=== PATIENT | female | born 1945 | race Caucasian/White ===

== ENCOUNTER 2024-10-08 10:24 | Observation (INO) ==
[2024-10-08 11:29] LABS: ABS Eosinophils 0.1 10^3/uL (0.0-0.5); ABS Monocytes 0.3 10^3/uL (0.0-0.9); ABS Neutrophils 5.2 10^3/uL (1.5-7.6); Hematocrit 25.9 % (35-45); Hemoglobin 8.9 g/dL (11.5-14.3); Lymphocyte % 14.4 %; Mean Corpuscular Hemoglobin 31.5 pg (27-33); Mean Corpuscular Hgb Conc 34.3 g/dL (31-36); Mean Corpuscular Volume 91.7 fL (80-97); Mean Platelet Volume 7.5 fL (7.5-11.2); Platelet Count 314 10^3/uL (150-450); Red Blood Count 2.82 10^6/uL (3.63-4.92); Red Cell Distribution Width 13.2 % (12-17); White Blood Count 6.6 10^3/uL (3.8-11.8)
[2024-10-08 11:52] LABS: High Sens Troponin Baseline 4 pg/mL (<15)
[2024-10-08 12:01] LABS: ALT 9 U/L (7-52); AST 13 U/L (13-39); Albumin 4.1 g/dL (3.5-5.7); Albumin/Globulin Ratio 2.1 (1-3); Alkaline Phosphatase 47 U/L (35-149); Anion Gap 3 mmol/L (2-16); Blood Urea Nitrogen 22 mg/dL (6-24); CO2 Carbon Dioxide 30 mmol/L (22-32); Chloride 107 mmol/L (101-111); Creatinine, Serum 0.61 mg/dL (0.51-0.95); Glucose 129 mg/dL (70-100); Potassium 3.7 mmol/L (3.5-5.0); Sodium 140 mmol/L (135-145); Total Bilirubin 0.4 mg/dL (0.2-1.0); Total Protein 6.1 g/dL (6.4-8.9); eGFR CKD-EPI 91.5 (>60)
[2024-10-08 13:10] LABS: High Sensitivity Troponin 1 Hr 4 pg/mL (<15)
[2024-10-08] MEDS: Lactated Ringers 1000 ml BAG 1,000 ML IV ONE (14:21)
[2024-10-08 14:30] LABS: Hemoglobin 8.3 g/dL (11.5-14.3)
[2024-10-08] MEDS ORDERED: Sulfur Hexaflouride MICROSPHR 25 MG VIAL IV PRN (14:47)
[2024-10-08 15:07] LABS: % Iron Saturation 6 % (15-55); .Transferrin 249 mg/dL (203-362); Iron < 20 ug/dL (50-212); Total Iron Binding Capacity 349 mcg/dL (250-450); Unsaturated Iron Binding 329 ug/dL
[2024-10-08 15:27] LABS: Ferritin 6.9 ng/mL (11-307)
[2024-10-08] MEDS: Lactated Ringers 1000 ml BAG 1,000 ML IV SCH (15:34)
[2024-10-08] MEDS: Ferric Gluconate IV 250 MG in NS 0.9% 250 ml 200 ML IVPB SCH (18:01)
[2024-10-08] MEDS: Enoxaparin 40 MG/0.4 ML SYR SUBCUT SCH (18:02)
[2024-10-08] MEDS: Senna TAB 8.6 mg TAB PO SCH (18:02)
[2024-10-08] MEDS: Sodium Phosphate ADULT ENEMA 133 ML BTL PR ONE (19:20)
[2024-10-08] MEDS: Polyethylene Glycol 3350 17 GM PACKET PO SCH (22:06)
[2024-10-09 08:48] LABS: ABS Lymphocytes 0.7 10^3/uL (1.0-4.8); ABS Monocytes 0.6 10^3/uL (0.0-0.9); ABS Neutrophils 6.2 10^3/uL (1.5-7.6); ABS Nucleated RBC 0.01 10^3/ul; Eosinophil % 0.4 %; Hematocrit 21.2 % (35-45); Hemoglobin 7.2 g/dL (11.5-14.3); Lymphocyte % 9.6 %; Mean Corpuscular Hemoglobin 30.6 pg (27-33); Mean Corpuscular Hgb Conc 33.7 g/dL (31-36); Mean Corpuscular Volume 90.8 fL (80-97); Mean Platelet Volume 7.6 fL (7.5-11.2); Nucleated Red Blood Cells % 0.1 %/100WBC (0.0-0.8); Platelet Count 259 10^3/uL (150-450); Red Blood Count 2.33 10^6/uL (3.63-4.92); White Blood Count 7.6 10^3/uL (3.8-11.8)
[2024-10-09 09:18] LABS: Calcium 8.1 mg/dL (8.6-10.3); Creatinine, Serum 0.49 mg/dL (0.51-0.95); Potassium 3.9 mmol/L (3.5-5.0); eGFR CKD-EPI 96.4 (>60)
[2024-10-09] MEDS: PEG 3000 GI LAVAGE 1 GALLON PO ONE (10:56)
[2024-10-09 13:51] VITALS: BP 96/60
== END 2024-10-09 15:20 ==
LOC: ED 10:24 → EDHOLD 10:24 → MEDTELE 15:35
PROVIDERS: ADMIT Student in an Organized Health Care Education/Training Program; ATTEND Student in an Organized Health Care Education/Training Program